=== PATIENT | male | born 1940 | race Caucasian/White ===

== ENCOUNTER → 2017-01-02 | Day surgery (SDC) | payer OTHER ==
[~2017-01-02] VITALS: Ht 172.7 cm; Wt 97.6 kg
[~2017-01-02] MED LIST: ACETAMINOPHEN 325 MG TAB PO PRN; ALBU1.257 NEB; AMIO200T4 PO; AMIO200T7 PO; ASPEC81 PO; ASPI81TA28 PO; ATOR-24 PO; ATROPINE SULFATE 0.1 MG/ML 5ML SYR IV PRN; CHOL100010 PO; DILT-115 PO; DMD20 PO; DOCU-94 PO; FENTANYL CITRATE INJ 50 MCG/1 ML 2 ML VIAL ONE; FINA5TAB PO; FLUT115A INH; FRS/40 PO; HEPARIN SOD (PORCINE) 1000 UNIT/ML 10 ML VIAL ONE; LEVO25TA5 PO; LINA1TAB PO; LOSA50TA54 PO; METF1000 PO; MIDAZOLAM HCL 1 MG/ML 2ML VIAL ONE; MOME50SP5; NITR0.4S UT; NITROGLYCERIN/D5W 100MCG/ML 20ML SYR ONE; NiCARDipine HCL INJ 2.5 MG/ML 10 ML AMP ONE; ONDANSETRON INJ 2 MG/ML 2 ML VIAL IV PRN; OXGN; PRLSR20 PO; SITA50TA3 PO; SODIUM CHLORIDE 0.9% 1000ML 250 ML IV PRN; SRVDIN60 INH; TAMS0.4C38 PO; TIOTCAP INH; TORS20TA2 PO; VNTHFA/IN INH; XRL10 PO
[2017-01-02 07:56] VITALS: BP 161/89; PULSE 83; TEMP 36.3; O2SAT 96; Ht 172.7 cm; Wt 97.6 kg
--- NOTE | 2017-01-02 08:32 | History & Physical Bridge Note ---
H&P Re-Evaluation Bridge Note: I have examined the patient, reviewed the History & Physical and in the interval since the performance of the History & Physical I have noted the following changes of clinical significance: No changes noted
--- NOTE | 2017-01-02 08:33 | Procedure Note ---
Pre-Mod Sedation Assessment General Date of Moderate Sedation: Jan 02, 2017. Vital Signs: Vital Signs Past 12 Hours Date Time Temp Pulse Resp B/P (MAP) Pulse Ox O2 Delivery O2 Flow Rate FiO2 01/02/17 07:56 36.3 83 16 161/89 96 Room Air Review Cardiovascular: no edema, + irregularly irregular Abdomen: normal bowel sounds, non tender, soft Lungs: chest non-tender, lungs clear, normal breath sounds Pre-Sedation Airway Assessment Oral Cavity: Dentures Short Thick Neck: No Hx of Sleep Apnea: No Smoking Status: Former Smoker Mallampati Classification: Class III ASA Classification: Class III Procedure Planning Contraindications-for Mod Sed: None Yes Notes The planned sedation has been discussed with the patient and consent obtained. I have identified the patient, determined the appropriateness of sedation and have assessed the patient immediately prior to the procedure. All medicine(s) and interventions are by my order.
--- NOTE | 2017-01-02 09:44 | Procedure Note ---
Post-Mod Sedation Assessment General Date of Moderate Sedation Jan 02, 2017. Vital Signs: Vital Signs Past 12 Hours Date Time Temp Pulse Resp B/P (MAP) Pulse Ox O2 Delivery O2 Flow Rate FiO2 01/02/17 09:40 Room Air 01/02/17 09:35 Room Air 01/02/17 09:30 86 16 136/96 (109) 96 Room Air 01/02/17 07:56 36.3 83 16 161/89 96 Room Air Review - Discharge Criteria Vital Signs Stable: Yes Alert/Oriented/Conversant: Yes Returned to Baseline Mental St: Yes Nausea Absent/Minimal: Yes Pain/Discomfort/Absent/Minimal: Yes Normal/Baseline Respirations: Yes Active Bleeding?: No Pt Received D/C Instructions: Yes Prescriptions Given: Transmitted Specific Proced. D/C Criteria Distal Pulses Present (Cardiac: Yes Groin site assessed-Card Cath: N/A Voided Prior To Discharge: N/A Discharged Patients Adult Escort/Transportation: Yes
--- NOTE | 2017-01-02 10:06 | Cardiac Catheterization ---
Procedure Note Procedure Date Jan 02, 2017. Pre-Procedure Diagnosis Angina, CAD AUC Score 7 Post-Procedure Diagnosis Severe CAD Procedure(s) Performed Coronary Angiography, Left Heart Cath Fruit Grower Dr. Edwards Pickling Grader(s) Nancy DUBOIS Estimated Blood Loss 5cc Medication(s) Fentanyl (12.5mcg), Heparin, Nicardipine, Nitroglycerin, Versed (1mg), Lidocaine 1% Summary of Findings 70% proximal LPL 50% Mid Lcx Patent LAD and Lcx stents with mild ISR. Hemodynamics Rest Ao: 115/58/84 Final Ao: 139/63/99 LV: 133/7/20 Recommendations Medical therapy and/or Counseling Specimens None Radiation Exposure (mGy) 1577 Contrast (mls) 75 Anesthesia Moderate sedation Start 0850, End 0932, Sedation monitor Jeni Johnson RN Procedural Complication(s) None Disposition Tool Crib Attendant Holding/Recovery ACC Data Cardiac Status Clinical evaluation leading to the procedure CAD Presntation: Stable angina Anginal Classification: CCS II Heart Failure: No Cardiogenic Shock w/in 24Hrs: No Cardiac Arrest w/in 24Hrs: No Imaging studies past 6 months: Yes Stress studies past 6 months: Yes Stress Testing w/SPECT MPI: Yes - Negative Coronary Anatomy Dominant: Right Left Main (% Stenosis): Proximal (30%) LAD (% Stenosis): Proximal (patent stent with 30% ISR), Mid (30%), Distal (10%) D1 (% Stenosis): Ostial (20%), Proximal (20%), Mid (10%), Distal (20%) D2 (% Stenosis): Ostial (0%), Proximal (10%), Mid (10%), Distal (10%) Circumflex (% Stenosis): Ostial (30%), Proximal (10%), Mid (40-50% at bifurcation) OM1 (% Stenosis): Ostial (Three small OM branches with mild luminal irregularities. 4th OM is moderate size with 30-40% proximal stenosis, 10% mid- distal) RCA (% Stenosis): Ostial (0%), Proximal (10%), Mid (10%), Distal (20%) R PDA (% Stenosis): Ostial (20%), Proximal (10%), Mid (10%), Distal R PL1 (% Stenosis): Ostial (0%), Proximal (10%), Mid (10%), Distal (10%) R PL2 (% Stenosis): Proximal (70% extending to ostium), Mid (10%), Distal (10%) AM (% Stenosis): Normal
--- NOTE | 2017-01-02 10:09 | Discharge Instructions ---
Discharge Instructions Procedure Procedure Date: Jan 02, 2017. Reason for Visit: Cad; Chest Pain *Dr. Edwards. Discharge Discharge Date: Jan 02, 2017. Discharge Diagnosis: Severe branch vessel CAD Atrial flutter Last Recorded Wt (Kilograms): 97.6 Anesthesia Post Anesthesia Instructions: If you have had General Anesthesia or IV Sedation: * Do not drive today. * Resume driving when surgeon permits. * Do not make important decisions or sign legal documents today. * Call surgeon for: 1. Temperature elevations greater than 101 degrees F. 2. Uncontrollable pain. 3. Excessive bleeding. 4. Persistent nausea and vomiting. 5. Medication intolerance (nausea, vomiting or rash). * For nausea and vomiting use only clear liquids such as: tea, soda, bouillon until nausea subsides, then gradually increase diet as tolerated. * If you have any concerns or questions, call your surgeon's office. If physician is unavailable and it is an emergency, call 911 or go to the nearest emergency room. Instructions Activity Recommendations: limitations as noted below Return to School/Work: with the following limitations Recommended Home Diet: resume previous diet Allergies: Coded Allergies: No Known Drug Allergy (Verified Allergy, ., 12/05/10) Simvastatin (Verified Adverse Reaction, Mild, MUSCLE PAIN, 03/17/13) Provider Instructions ACTIVITY RECOMMENDATIONS: Excess manipulation of the wrist should be avoided for the next 24-48 hours. * No lifting over 2 pounds (approximately a 1/2 gallon of milk) with the utilized arm for 24 hours. * No strenuous activity such as bowling or tennis for 3 days. * Keep the site of the procedure covered with a bandage for 24 hours. *You may shower the day after the procedure. Do not take a tub bath or submerge the puncture site in water for the next 3 days. *Do not operate any motorized equipment for 3 days. SPECIAL CARE INSTRUCTIONS: The site may be slightly bruised and sore following your procedure. Should any of the following occur, contact the DrAnand who performed your procedure. 1. Redness/inflammation, swelling, chills, or fever, or colored drainage at procedure site within 3-7 days after your procedure. 2. Coldness, discoloration, ongoing numbness, severe pain, or swelling. Expect mild tingling of hand and tenderness at the puncture site for up to three days. If this persists beyond three days, or other symptoms develop, notify the Dr. who performed your procedure. BLEEDING: If the procedure site on your wrist begins to bleed, do not panic 1. Place 1 or 2 fingers firmly just slightly above the insertion site to stop the bleeding. You may be able to feel your pulse as you hold pressure. 2. Lift your finger after 5 minutes to see if the bleeding has stopped. 3. Once the bleeding has stopped, gently wipe the wrist area clean with a bandage. * If the bleeding from your wrist does not stop after 10 minutes, or if there is a large amount of bleeding or spurting, call 911 ([address] drive yourself to the hospital). SKIN IRRITATION: * You may experience some redness and/or swelling in the area where radiation was administered. If any skin irritation occurs, please contact your family physician. FOLLOW UP VISIT: Keep any scheduled doctor appointments. Follow Up Follow-up with: Dr. Lloyd as scheduled. Moe Makc Recommendations: Call your doctor if: * Temperature above 101 degrees * Pain not relieved by pain medicine ordered * There is increased drainage or redness from any incision * You have any unanswered questions or concerns. Your Doctors Instructions noted above were prepared by provider Francisco Edwards. Patient Signature Section: Patient Instructions Signature Page Landon Cobos Patient (or Guardian) Signature/Date: I have read and understand the instructions given to me by my caregivers. Caregiver/RN/Doctor Signature/Date: The above-named patient and/or guardian has received patient instructions on this date. + Original Patient Signature Page (only) stays with chart. Please make copy for patient.
[2017-01-02 11:30] VITALS: BP 119/58; PULSE 66; O2SAT 94
== END | disposition home or self-care (01) ==
LOC: C.CATH 07:34
PROVIDERS: ATTEND Internal Medicine Cardiovascular Disease
DX: I25.10 Atherosclerotic heart disease of native coronary artery without angina pectoris (principal); I48.92 Unspecified atrial flutter; I50.32 Chronic diastolic (congestive) heart failure; I10 Essential (primary) hypertension; E78.5 Hyperlipidemia, unspecified; E11.49 Type 2 diabetes mellitus with other diabetic neurological complication; J44.9 Chronic obstructive pulmonary disease, unspecified; E11.319 Type 2 diabetes mellitus with unspecified diabetic retinopathy without macular edema; N40.1 Benign prostatic hyperplasia with lower urinary tract symptoms; N13.8 Other obstructive and reflux uropathy; E03.2 Hypothyroidism due to medicaments and other exogenous substances; Z79.84 Long term (current) use of oral hypoglycemic drugs; Z79.899 Other long term (current) drug therapy; Z79.82 Long term (current) use of aspirin; Z87.891 Personal history of nicotine dependence